=== PATIENT | male | born 1960 | race American Indian/Alaskan Native ===

== ENCOUNTER 2018-07-10 19:58 | Emergency (ER) | payer BC, OTHER ==
--- NOTE | 2018-07-10 21:01 | Emergency Department Report ---
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 ED Disposition for MSE Condition: Stable
[2018-07-10 21:02] VITALS: BP 157/92
[2018-07-10] MEDS ORDERED: BSS ONE (23:49)
[2018-07-10] MEDS ORDERED: TETRACAINE 0.5% ONE (23:50)
[2018-07-10] MEDS ORDERED: FUL-GLO OP ONE (23:50)
[2018-07-10] MEDS ORDERED: BENADRYL PO ONE ×2 (23:56→23:58)
[2018-07-10] MEDS ORDERED: NORCO 5/325 ONE (23:56)
[2018-07-10] MEDS ORDERED: IBUPROFEN PO ONE ×2 (23:56→23:58)
[2018-07-10] MEDS ORDERED: NORCO 5/325 PO ONE (23:58)
[2018-07-11] MEDS ORDERED: TETRACAINE 0.5% OU ONE (00:01)
[2018-07-11] MEDS ORDERED: FUL-GLO OP ONE (00:01)
[2018-07-11] MEDS ORDERED: BSS OU ONE (00:01)
--- NOTE | 2018-07-11 00:55 | Emergency Department Report ---
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" no vision problems no contacts PMHx HTN no allergies to medications +smoker 10 cigarettes a day +daily drinker denies drug use MD chief complaint: eye pain, eye redness -: days(s) (4) Location: left eye If Injury: none Eye Symptoms: redness, pain, discharge Severity: moderate - Related Data Previous Rx's Medication Instructions Recorded Last Taken Type Erythromycin [Erythromycin Ophth 1 applic OP QID #1 tube 07/11/18 Unknown Rx Oint] Ibuprofen [Motrin 600 MG tab] 600 mg PO Q8H PRN #21 tablet 07/11/18 Unknown Rx Ketotifen Fumarate [Zaditor] 1 drop OP QDAY #1 drops 07/11/18 Unknown Rx Allergies Allergy/AdvReac Type Severity Reaction Status Date / Time No Known Allergies Allergy Verified 07/10/18 23:59 ED Review of Systems ROS: Stated complaint: L EYE PAIN/SWELLING/BERMEO Other details as noted in HPI ED Past Medical Hx - Past Medical History Previous Medical History?: Yes Hx Hypertension: Yes - Surgical History Past Surgical History?: No - Social History Smoking Status: Current Every Day Smoker Substance Use Type: Alcohol - Medications Home Medications: Home Medications Medication Instructions Recorded Confirmed Last Taken Type Erythromycin [Erythromycin Ophth 1 applic OP QID #1 tube 07/11/18 Unknown Rx Oint] Ibuprofen [Motrin 600 MG tab] 600 mg PO Q8H PRN #21 tablet 07/11/18 Unknown Rx Ketotifen Fumarate [Zaditor] 1 drop OP QDAY #1 drops 07/11/18 Unknown Rx ED Physical Exam - General Limitations: No Limitations ED Course Vital Signs 07/10/18 20:58 Temperature 98.3 F Pulse Rate 82 Respiratory 16 Rate Blood Pressure 157/92 O2 Sat by Pulse 98 Oximetry Critical care attestation.: If time is entered above; I have spent that time in minutes in the direct care of this critically ill patient, excluding procedure time. ED Disposition Clinical Impression: Conjunctivitis Disposition: DC-01 TO HOME OR SELFCARE Is pt being admited?: No Does the pt Need Aspirin: No Condition: Stable Instructions: Conjunctivitis (ED) Additional Instructions: Please take medications as prescribed. Follow up with her primary care provider or an disability benefits specialist if symptoms persist or gets worse. Prescriptions: Erythromycin [Erythromycin Ophth Oint] 1 applic OP QID #1 tube Ibuprofen [Motrin 600 MG tab] 600 mg PO Q8H PRN #21 tablet PRN Reason: Pain Ketotifen Fumarate [Zaditor] 1 drop OP QDAY #1 drops Referrals: RAFA SALAZAR MD [Primary Care Provider] - 3-5 Days [facility] [Provider Group] - 3-5 Days [facility], [facility] [Provider Group] - 3-5 Days
== END 2018-07-11 01:10 | disposition home or self-care (01) ==
LOC: ED 19:58
DX: H10.9 Unspecified conjunctivitis (principal); F17.200 Nicotine dependence, unspecified, uncomplicated; I10 Essential (primary) hypertension
CPT/HCPCS: 99282

== ENCOUNTER 2019-05-21 18:56 | Emergency (ER) | payer OTHER ==
--- NOTE | 2019-05-22 02:27 | Emergency Department Report ---
- General Chief Complaint: Upper Respiratory Infection Stated Complaint: SOB, THROAT SORE Source: patient Mode of arrival: Ambulatory Limitations: No Limitations - History of Present Illness Initial Comments: Patient is a 58-year-old -[place] male with a history of hypertension and noncompliant with his medications, history of heavy tobacco smoking who presents to the ED with persistent nasal and sinus congestion, dry cough and subjective shortness of breath for the last 2 days. Patient states that his has had similar symptoms. Patient denies chest pain, dizziness, syncope, fever, chills, sore throat, change in vision, abdominal pain, nausea and vomiting and diarrhea. MD Complaint: cough, rhinorrhea, nasal congestion, sinus pain -: Sudden, days(s) (2) Severity: moderate Severity scale (0 -10): 4 Quality: dull, aching Consistency: intermittent Improves With: nothing Worsens With: nothing Context: sick contacts Associated Symptoms: denies other symptoms, rhinorrhea, nasal congestion, cough. denies: fever, chills, myalgias, diaphoresis, headache, sore throat, stiff neck, chest pain, shortness of breath, abdominal pain, nausea, vomiting, diarrhea, rash, confusion, weight loss, epistaxis, hoarseness, ear pain Treatments Prior to Arrival: none - Related Data Previous Rx's Medication Instructions Recorded Last Taken Type Erythromycin [Erythromycin Ophth 1 applic OP QID #1 tube 07/11/18 Unknown Rx Oint] Ibuprofen [Motrin 600 MG tab] 600 mg PO Q8H PRN #21 tablet 07/11/18 Unknown Rx Ketotifen Fumarate [Zaditor] 1 drop OP QDAY #1 drops 07/11/18 Unknown Rx Azithromycin [Zithromax Z-THERESA] 250 mg PO DAILY #6 tablet 05/22/19 Unknown Rx Benzonatate [Tessalon Perles] 100 mg PO Q8HR #30 capsule 05/22/19 Unknown Rx methylPREDNISolone [Medrol 4MG 4 mg PO DAILY #21 tab.ds.pk 05/22/19 Unknown Rx DOSEPAK (21 tabs)] Allergies Allergy/AdvReac Type Severity Reaction Status Date / Time No Known Allergies Allergy Verified 07/10/18 23:59 ED Review of Systems ROS: Stated complaint: SOB, THROAT SORE Other details as noted in HPI Constitutional: denies: chills, fever Eyes: denies: eye pain, eye discharge, vision change ENT: congestion. denies: ear pain, throat pain Respiratory: cough, shortness of breath. denies: wheezing Cardiovascular: denies: chest pain, palpitations Endocrine: no symptoms reported Gastrointestinal: denies: abdominal pain, nausea, diarrhea Genitourinary: denies: urgency, dysuria Musculoskeletal: denies: back pain, joint swelling, arthralgia Skin: denies: rash, lesions Neurological: denies: headache, weakness, paresthesias Psychiatric: denies: anxiety, depression Hematological/Lymphatic: denies: easy bleeding, easy bruising ED Past Medical Hx - Past Medical History Previous Medical History?: Yes Hx Hypertension: Yes - Surgical History Past Surgical History?: No - Social History Smoking Status: Current Every Day Smoker Substance Use Type: Alcohol - Medications Home Medications: Home Medications Medication Instructions Recorded Confirmed Last Taken Type Erythromycin [Erythromycin Ophth 1 applic OP QID #1 tube 07/11/18 Unknown Rx Oint] Ibuprofen [Motrin 600 MG tab] 600 mg PO Q8H PRN #21 tablet 07/11/18 Unknown Rx Ketotifen Fumarate [Zaditor] 1 drop OP QDAY #1 drops 07/11/18 Unknown Rx Azithromycin [Zithromax Z-THERESA] 250 mg PO DAILY #6 tablet 05/22/19 Unknown Rx Benzonatate [Tessalon Perles] 100 mg PO Q8HR #30 capsule 05/22/19 Unknown Rx methylPREDNISolone [Medrol 4MG 4 mg PO DAILY #21 tab.ds.pk 05/22/19 Unknown Rx DOSEPAK (21 tabs)] ED Physical Exam - General Limitations: No Limitations General appearance: alert, in no apparent distress - Head Head exam: Present: atraumatic, normocephalic, normal inspection - Eye Eye exam: Present: normal appearance, PERRL, EOMI Pupils: Present: normal accommodation - ENT ENT exam: Present: mucous membranes moist, TM's normal bilaterally, normal external ear exam, other (Grossly congested nasal passages) - Neck Neck exam: Present: normal inspection, full ROM. Absent: tenderness, lymphadenopathy - Respiratory Respiratory exam: Present: normal lung sounds bilaterally. Absent: respiratory distress, wheezes, rales, rhonchi, chest wall tenderness, accessory muscle use, decreased breath sounds, prolonged expiratory - Cardiovascular Cardiovascular Exam: Present: regular rate, normal rhythm, normal heart sounds. Absent: systolic murmur, diastolic murmur, rubs, gallop - GI/Abdominal GI/Abdominal exam: Present: soft, normal bowel sounds. Absent: tenderness, guarding, hyperactive bowel sounds, hypoactive bowel sounds - Extremities Exam Extremities exam: Present: normal inspection, full ROM, normal capillary refill - Back Exam Back exam: Present: normal inspection, full ROM. Absent: tenderness, muscle spasm, paraspinal tenderness - Neurological Exam Neurological exam: Present: alert, oriented X3, CN II-XII intact, normal gait, reflexes normal - Psychiatric Psychiatric exam: Present: normal affect, normal mood - Skin Skin exam: Present: warm, dry, intact, normal color. Absent: rash ED Course Vital Signs 05/21/19 19:25 Temperature 98.4 F Pulse Rate 85 Respiratory 18 Rate Blood Pressure 165/102 O2 Sat by Pulse 97 Oximetry ED Medical Decision Making - Medical Decision Making This is a 58-year-old male who presented to the ED with persistent nasal and sinus congestion and dry cough for the last 2 days. Patient states that his also has had similar symptoms. Patient admittedly has blood pressure medications at home but admits that he has not taken his blood pressure medication in over 1 month. Patient also admits to smoking 1 pack a day of cigarettes. In the ED, patient is alert and oriented x3 and is not in distress but hypertensive in triage. Patient was discharged home on medications and advised to take his blood pressure medications and to follow-up with his primary care physician in 5 to 7 days for reevaluation or return to the ED immediately if symptoms get worse. - Differential Diagnosis URI; Bronchitis; Pneumonia; Sinusitis Critical care attestation.: If time is entered above; I have spent that time in minutes in the direct care of this critically ill patient, excluding procedure time. ED Disposition Clinical Impression: Acute upper respiratory infection Acute frontal sinusitis, unspecified Qualifiers: Recurrence: non-recurrent Qualified Code(s): J01.10 - Acute frontal sinusitis, unspecified Acute bronchitis Qualifiers: Bronchitis organism: unspecified organism Qualified Code(s): J20.9 - Acute bronchitis, unspecified Disposition: DC-01 TO HOME OR SELFCARE Is pt being admited?: No Does the pt Need Aspirin: No Condition: Stable Instructions: Acute Bronchitis (ED), Upper Respiratory Infection (ED), Sinusitis (ED) Additional Instructions: Take medication with food, drink plenty of fluids and follow-up with your primary care physician in 7 to 10 days for reevaluation. Return to the ED immediately if symptoms get worse. Prescriptions: methylPREDNISolone [Medrol 4MG DOSEPAK (21 tabs)] 4 mg PO DAILY #21 tab.ds.pk Benzonatate [Tessalon Perles] 100 mg PO Q8HR #30 capsule Azithromycin [Zithromax Z-THERESA] 250 mg PO DAILY #6 tablet Referrals: JUAN JOSÉ BURR MD [Primary Care Provider] - 3-5 Days Time of Disposition: 02:24 Print Language: MALAWIAN
[2019-05-22 02:49] VITALS: BP 181/96
== END 2019-05-22 02:49 | disposition home or self-care (01) ==
LOC: ED 18:56
DX: J06.9 Acute upper respiratory infection, unspecified (principal); J01.10 Acute frontal sinusitis, unspecified; J20.9 Acute bronchitis, unspecified; I10 Essential (primary) hypertension; F17.200 Nicotine dependence, unspecified, uncomplicated; Z79.1 Long term (current) use of non-steroidal anti-inflammatories (NSAID); Z79.899 Other long term (current) drug therapy
CPT/HCPCS: 99281